=== PATIENT | female | born 2000 | race American Indian/Alaskan Native ===

== ENCOUNTER 2024-05-28 17:59 | Inpatient (IN) | payer BC, OTHER ==
[2024-05-28] MEDS ORDERED: Sodium Chloride 0.9% 10 ML Syringe FLUSH PRN (18:41)
[2024-05-28] MEDS ORDERED: Misoprostol 100 MCG Tab BUCCAL ONE (18:41)
[2024-05-28] MEDS ORDERED: Carboprost Tromethamine 250 MCG/1 ML Amp IM PRN (18:41)
[2024-05-28] MEDS ORDERED: Methylergonovine 0.2 MG/1 ML Amp IM PRN (18:41)
[2024-05-28] MEDS ORDERED: Tranexamic Acid 1,000 MG in Sodium Chloride 0.9% 100 ML IV PRN (18:41)
[2024-05-28] MEDS ORDERED: Calcium Gluconate 10% 1 GM/10 ML SDV IVPUSH PRN (18:44)
[2024-05-28] MEDS ORDERED: hydrALAZINE 20 MG/ML SDV IVPUSH PRN (18:45)
[2024-05-28] MEDS ORDERED: NIFEdipine 10 MG Cap PO PRN (18:45)
[2024-05-28] MEDS: Labetalol 20 MG/4 ML Syringe IVPUSH ONE ×2 (18:54→19:52)
[2024-05-28 18:56] LABS: HEMOGLOBIN 12.8 g/dL (12.0-16.0); MEAN CORPUSCULAR HEMOGLOBIN 28.3 pg (27.0-34.0); MEAN CORPUSCULAR HGB CONC 32.8 g/dL (33.0-35.0); MEAN CORPUSCULAR VOLUME 86.3 fL (80-100); RED BLOOD CELL COUNT 4.52 10^6/uL (4.2-5.4); WHITE BLOOD CELL COUNT,WBC 15.5 10^3/uL (5.0-10.0)
[2024-05-28 18:58] LABS: APPEARANCE,URINE CLEAR (CLEAR); BILIRUBIN,URINE NEGATIVE (NEGATIVE); COLOR,URINE YELLOW (YELLOW); GLUCOSE,URINE NEGATIVE (NEGATIVE); KETONES,URINE NEGATIVE (NEGATIVE); LEUKOCYTE ESTERASE,URINE NEGATIVE (NEGATIVE); NITRITE,URINE NEGATIVE (NEGATIVE); OCCULT BLOOD,URINE NEGATIVE (NEGATIVE); PROTEIN,URINE NEGATIVE (NEGATIVE); UROBILINOGEN,URINE 0.2 mg/dL (0.2-1.0)
[2024-05-28] MEDS: Magnesium Sulfate/Water Premix 4 GM in Premix Bag 1 BAG IV ONE (18:58)
[2024-05-28] MEDS: Labetalol 20 MG/4 ML Syringe IVPUSH PRN (19:10)
[2024-05-28] MEDS: Magnesium Sulfate/Water Premix 20 GM in Premix Bag 1 BAG IV SCH (19:17)
[2024-05-28 19:18] LABS: CREATININE,URINE RAND 70.14 mg/dL (No establ ref range); PROTEIN CREATININE RATIO,URINE 225.3 mg/g (<150.0); PROTEIN,URINE RANDOM 15.8 mg/dL (0.0-11.9)
[2024-05-28 19:22] LABS: ALANINE AMINOTRANSFERASE,ALT 15 U/L (14-59); ASPARTATE AMNIOTRANSFERASE,AST 12 U/L (15-37); BLOOD UREA NITROGEN,BUN 11 mg/dL (7-18); CREATININE 0.88 mg/dL (0.55-1.02); LACTATE DEHYDROGENASE,LDH 148 U/L (81-234); URIC ACID 4.6 mg/dL (2.6-6.0)
[2024-05-28 19:29] LABS: ESTIMATED GFR 95 mL/min (>=60)
[2024-05-28] MEDS: Magnesium Sulfate/Water Premix 100 ML ONE (19:30)
[2024-05-28] MEDS: Labetalol 20 MG/4 ML Syringe ONE ×2 (19:31→19:52)
[2024-05-28] MEDS: Misoprostol 50 MCG (1/2 of 100 MCG) Tab PO SCH (20:50)
[2024-05-28] MEDS: Labetalol 100 MG Tab PO ONE (21:15)
[2024-05-29] MEDS: Misoprostol 25 MCG (1/4 of 100 MCG) Tab PO PRN (00:52)
[2024-05-29] MEDS: Labetalol 100 MG Tab PO SCH (09:40)
[2024-05-29] MEDS ORDERED: Misoprostol 100 MCG Tab RECTAL PRN (10:57)
[2024-05-29] MEDS: Nalbuphine HCl 10 MG/ 1ML Amp IVPUSH ONE (15:28)
[2024-05-29] MEDS: Ondansetron 4 MG/2 ML SDV IVPUSH PRN (18:15)
[2024-05-30] MEDS: Oxytocin/Normal Saline 30 UNIT/500 ML BAG IV SCH ×2 (03:23→21:43)
[2024-05-30] MEDS: Lactated Ringers 1,000 ML IV SCH (03:26)
[2024-05-30] MEDS: Nalbuphine HCl 10 MG/ 1ML Amp IM PRN (03:40)
[2024-05-30] MEDS ORDERED: Bupivacaine 0.25% 10 ML SDV ONE (09:36)
[2024-05-30] MEDS ORDERED: fentaNYL 100 MCG/2 ML SDV ONE (09:36)
[2024-05-30] MEDS ORDERED: ePHEDrine 50 MG/ML SDV IVPUSH PRN ×2 (10:01→21:15)
[2024-05-30] MEDS ORDERED: Phenylephrine HCl In 0.9% NaCl 1 MG/10 ML Syringe IVPUSH PRN (10:01)
[2024-05-30] MEDS ORDERED: Ropivacaine 200 MG in Premix Bag 1 BAG EPIDUR SCH (10:15)
[2024-05-30] MEDS: Magnesium Sulfate/Water Premix 20 GM/500 ML BAG IV SCH (13:43)
[2024-05-30] MEDS ORDERED: Oxytocin/Normal Saline 30 UNIT/500 ML BAG IV SCH (19:45)
[2024-05-30] MEDS ORDERED: Lactated Ringers 1,000 ML IV SCH ×2 (19:45→21:15)
[2024-05-30] MEDS ORDERED: Gentamicin 40 MG/ML 2 ML Vial ONE ×2 (20:03)
[2024-05-30] MEDS ORDERED: Dexamethasone 4 MG/ML SDV ONE (20:04)
[2024-05-30] MEDS ORDERED: Oxytocin 10 Units/1 ML SDV ONE (20:04)
[2024-05-30] MEDS ORDERED: Clindamycin in 0.9 % Sod Chlor 100 ML ONE (20:04)
[2024-05-30] MEDS ORDERED: Lidocaine 2% with EPINEPHrine 1:200,000 20 ML SDV ONE (20:04)
[2024-05-30] MEDS ORDERED: Ondansetron 4 MG/2 ML SDV ONE (20:04)
[2024-05-30] MEDS ORDERED: Ketorolac 30 MG/ML SDV ONE (20:04)
[2024-05-30] MEDS ORDERED: Tranexamic Acid 1,000 MG/10 ML Vial ONE (20:31)
[2024-05-30] MEDS ORDERED: Carboprost Tromethamine 250 MCG/1 ML Amp ONE (20:43)
[2024-05-30] MEDS ORDERED: Acetaminophen/oxyCODONE 325-5 MG Tab PO PRN (21:15)
[2024-05-30] MEDS ORDERED: diphenhydrAMINE 50 MG/ML SDV IVPUSH PRN (21:15)
[2024-05-30] MEDS ORDERED: Naloxone 2 MG/2 ML Syringe IVPUSH PRN (21:15)
[2024-05-30] MEDS ORDERED: Acetaminophen 325 MG Tab PO PRN (21:15)
[2024-05-31] MEDS: Gentamicin 40 MG/ML 2 ML Vial IV ONE (01:20)
[2024-05-31] MEDS: Clindamycin in 0.9 % Sod Chlor 900 MG in Premix Bag 1 BAG IV ONE (01:40)
[2024-05-31] MEDS: Gentamicin 500 MG in Sodium Chloride 0.9% 100 ML IV ONE (01:41)
[2024-05-31] MEDS: Gentamicin 40 MG/ML 2 ML Vial ONE (01:41)
[2024-05-31] MEDS: Ketorolac 30 MG/ML SDV IVPUSH SCH (03:07)
[2024-05-31] MEDS: Lactated Ringers 1,000 ML IV ONE (04:31)
[2024-05-31] MEDS: Lidocaine 1% 30 ML SDV INJECT ONE (04:31)
[2024-05-31] MEDS: Prenatal Multivitamin with Calcium/Folic Acid/Iron Tab PO SCH (08:55)
[2024-05-31] MEDS: Simethicone 80 MG Tab.Chew PO SCH (08:55)
[2024-05-31] MEDS: Magnesium Sulfate/Water Premix 20 GM/500 ML BAG IV SCH (11:54)
[2024-05-31 21:20] LABS: HEMATOCRIT 34.4 % (37.0-47.0); HEMOGLOBIN 11.3 g/dL (12.0-16.0); MEAN CORPUSCULAR HEMOGLOBIN 28.8 pg (27.0-34.0); MEAN CORPUSCULAR HGB CONC 32.8 g/dL (33.0-35.0); MEAN CORPUSCULAR VOLUME 87.5 fL (80-100); RED BLOOD CELL COUNT 3.93 10^6/uL (4.2-5.4); WHITE BLOOD CELL COUNT,WBC 21.3 10^3/uL (5.0-10.0)
[2024-05-31] MEDS: Docusate Sodium 100 MG Cap PO PRN (21:59)
[2024-05-31] MEDS: Ibuprofen 800 MG Tab PO SCH (22:00)
[2024-05-31] MEDS: Acetaminophen/oxyCODONE 325-5 MG Tab PO PRN (22:01)
[2024-06-01] MEDS: Labetalol 100 MG Tab PO SCH (10:38)
== END 2024-06-01 17:08 | disposition home or self-care (01) | DRG 540 ==
LOC: DL.OBCHECK 17:59 → DL.OB 18:41 → OBSVTOIN 05-30 21:55
PROVIDERS: ADMIT Family Medicine; ATTEND Family Medicine
PROC: 10D00Z1 Extraction of Products of Conception, Low, Open Approach (ICD-10-PCS; principal; 2024-05-30)
PROC: 10907ZC Drainage of Amniotic Fluid, Therapeutic from Products of Conception, Via Natural or Artificial Opening (ICD-10-PCS; 2024-05-30)
PROC: 3E0P7VZ Introduction of Hormone into Female Reproductive, Via Natural or Artificial Opening (ICD-10-PCS; 2024-05-30)
PROC: 0U7C7ZZ Dilation of Cervix, Via Natural or Artificial Opening (ICD-10-PCS; 2024-05-30)
DX: O14.14 Severe pre-eclampsia complicating childbirth (principal); Z37.0 Single live birth; O48.0 Post-term pregnancy; O13.4 Gestational [pregnancy-induced] hypertension without significant proteinuria, complicating childbirth; O76 Abnormality in fetal heart rate and rhythm complicating labor and delivery; O77.0 Labor and delivery complicated by meconium in amniotic fluid; Z3A.40 40 weeks gestation of pregnancy; Z88.0 Allergy status to penicillin; Z98.890 Other specified postprocedural states
CPT/HCPCS: 36415; 51702; 59025; 81003; 82565; 82570; 83615; 83735; 84156; 84450; 84460; 84520; 84550; 85027; 86850; 86900; 86901; A9270-GY; C1726; C1729; J1885; J1920; J2300; J2405; J2590; J3475; J7120